=== PATIENT | female | born 1965 | race Caucasian/White ===

== ENCOUNTER → 2019-05-21 | Outpatient (CLI) | payer BC ==
[~2019-05-21] MED LIST: BIRTH CONTROL PILLS; TAMIFLU 75MG75 MG PO; VICODIN 5/5001 UDTAB PO; [UNRECOGNIZED DRUG - OTHER] TP
== END ==
LOC: COL.RAD 05-13 11:00
DX: R47.01 Aphasia (principal)

== ENCOUNTER → 2019-08-25 | Outpatient (CLI) | payer BC | LOC: MC.RAD 08:23 | DX: Z12.31 Encounter for screening mammogram for malignant neoplasm of breast (principal) ==

== ENCOUNTER → 2019-09-11 | Outpatient (CLI) | payer BC | LOC: COL.RAD 09:45 | DX: N92.1 Excessive and frequent menstruation with irregular cycle (principal); N83.201 Unspecified ovarian cyst, right side ==

== ENCOUNTER → 2020-07-08 | Outpatient (CLI) | payer BC | LOC: COL.RAD | DX: S06.0X0D Concussion without loss of consciousness, subsequent encounter (principal) ==

== ENCOUNTER → 2021-09-13 | Outpatient (CLI) | payer BC | LOC: MC.RAD 13:15 | DX: Z12.31 Encounter for screening mammogram for malignant neoplasm of breast (principal) ==

== ENCOUNTER 2023-08-21 09:01 | Day surgery (SDC) | payer BC ==
[~2023-08-21] VITALS: Ht 177.8 cm; Wt 110.5 kg
[2023-08-21 11:10] VITALS: BP 124/86; PULSE 74; TEMP 97.6
[2023-08-21] MEDS ORDERED: MOBIC 7.5MG7.5 MG PO (11:17)
[2023-08-21] MEDS ORDERED: PROTONIX 40MG T40 MG PO (11:17)
[2023-08-21] MEDS ORDERED: CRESTOR5 MG PO (11:18)
[2023-08-21] MEDS ORDERED: ALDACTONE 100M100 MG PO (11:19)
[2023-08-21] MEDS ORDERED: PRISTIQ100 MG PO (11:20)
[2023-08-21] MEDS ORDERED: FLEXERIL5 MG PO (11:20)
[2023-08-21] MEDS ORDERED: TYLENOL PM EXTR1 TA1 PO (11:22)
--- NOTE | 2023-08-21 14:29 | NUR ---
PATIENT HAS CONTINUED TO WAIT FOR SURGERY WHEN CHECKED ON HOURLY. IVF CONTINUE TO INFUSE. HAS BEEN UP TO THE BATHROOM X3. DR. KHAN WAS IN THE ROOM AND TALKED WITH THE PATIENT AT APPROXIMATELY 1200. WARM BLANKETS HAVE BEEN PROVIDED. SPOUSE IN ROOM.
[2023-08-21] MEDS ORDERED: NORCO 325 MG-51 TAB PO (15:30)
[2023-08-21 17:00] VITALS: BP 132/59; PULSE 57; TEMP 97.3
[2023-08-21 17:15] VITALS: BP 127/66; PULSE 65
[2023-08-21 17:30] VITALS: BP 130/65; PULSE 76
--- NOTE | 2023-08-21 18:21 | NUR ---
1700-REPORT OBTAINED FROM POLI GRIDER. PT ARRIVED TO [facility] [place] [facility] [facility] VIA [facility]ART, SPOUSE WAITING IN ROOM. VITAL SIGNS TAKEN ON ARRIVAL, VSS. PT REPORTS PAIN 5/10 WITH PRESSURE DISCOMFORT BELOW STERNUM. REPORTS MILD NAUSEA, BUT TOLERATING ICE CHIPS. REMAINS DROWSY AND REFUSES TO OPEN EYES AT THIS TIME 1715-VITAL SIGNS STABLE, PT OPENING EYES BUT REMAINS DROWSY. 1730-PT TOLERATING PO INTAKE. DENIES NAUSEA 1745-PRN PO PAIN MEDICATION GIVEN, REPORTS PAIN 5-6/10 AT THIS TIME. 1800-DISCHARGE INSTRUCTIONS REVIEWED WITH PT AND SPOUSE, QUESTIONS INVITED. PT ASSISTED TO BATHROOM AND BACK TO BED. ASSISTED WITH CHANGING INTO CLOTHING. 181-IV CATHETER DISCONTINUED, TIP INTACT. PRESSURE DRESSING APPLIED. 1814-PT DISCHARGED HOME TO [facility] VIA WHEELCHAIR, ALL BELONGINGS AND DC INSTRUCTIONS SENT WITH PT.
== END 2023-08-21 18:15 | disposition home or self-care (01) ==
LOC: SDCO 09:01
DX: K81.1 Chronic cholecystitis (principal); K82.8 Other specified diseases of gallbladder
CPT/HCPCS: J0690; J1100; J1170; J1885; J2405; J2704; J2710; J3010

== ENCOUNTER → 2024-06-22 | Outpatient (CLI) | payer BC ==
[~2024-06-22] MED LIST changes: +ALDACTONE 100M100 MG PO; +CRESTOR5 MG PO; +FLEXERIL5 MG PO; +MOBIC 7.5MG7.5 MG PO; +NORCO 325 MG-51 TAB PO; +PRISTIQ100 MG PO; +PROTONIX 40MG T40 MG PO; +TYLENOL PM EXTR1 TA1 PO
== END ==
LOC: COL.RAD 14:41
DX: E04.1 Nontoxic single thyroid nodule (principal)